=== PATIENT | female | born 1960 | race Caucasian/White ===

== ENCOUNTER → 2024-01-02 09:01 | Outpatient (REF) | payer BC, SELFPAY | LOC: RCS 09:01 | PROVIDERS: ATTENDING PHYSICIAN Physician Assistant Medical | DX: R42 Dizziness and giddiness (principal); R55 Syncope and collapse | CPT/HCPCS: 93225; 93226 ==

== ENCOUNTER → 2024-02-21 14:39 | Outpatient (REF) | payer BC, SELFPAY | LOC: HWWDC 14:39 | PROVIDERS: ATTENDING PHYSICIAN Obstetrics & Gynecology; FAMILY PHYSICIAN Internal Medicine | DX: Z12.31 Encounter for screening mammogram for malignant neoplasm of breast (principal) | CPT/HCPCS: 77063; 77067 ==

== ENCOUNTER → 2024-08-07 12:21 | Outpatient (REF) | payer BC, SELFPAY | LOC: RAD 12:21 | PROVIDERS: FAMILY PHYSICIAN Student in an Organized Health Care Education/Training Program | DX: R51.9 Headache, unspecified (principal) | CPT/HCPCS: 72052 ==

== ENCOUNTER → 2024-08-09 14:41 | Outpatient (REF) | payer BC, SELFPAY | LOC: HWRAD 14:41 | PROVIDERS: ATTENDING PHYSICIAN Student in an Organized Health Care Education/Training Program | DX: R51.9 Headache, unspecified (principal) | CPT/HCPCS: 70450 ==

== ENCOUNTER 2024-10-23 11:33 | Emergency (ER) | payer BC, SELFPAY ==
[2024-10-23 11:35] VITALS: BP 146/82
[2024-10-23 12:04] LABS: % Basophils 0.3 % (0-2); % Immature Granulocytes 0.3 % (0-0.5); % Monocytes 10.1 % (1.7-9.3); % Neutrophils 72.3 % (42.2-75.2); Absolute Eosinophils 0.1 10^3/uL (0-0.7); Absolute Lymphocytes 1.2 10^3/uL (1.2-3.4); Absolute Monocytes 0.7 10^3/uL (0.1-0.6); Absolute Neutrophils 5.3 10^3/uL (1.4-6.5); Hematocrit 38.4 % (37.0-47.0); Hemoglobin 12.9 g/dL (12.0-16.0); Mean Corp Hgb Conc. 33.6 g/dL (33.0-37.0); Mean Corpuscular Hgb 29.7 pg (27.0-31.0); Mean Corpuscular Volume 88.5 fL (81.0-99.0); Mean Platelet Volume 9.2 fL (7.4-10.4); Nucleated Red Blood Cells % 0 %; Platelet Count 391 10^3/uL (130-400); Red Blood Cell Count 4.34 10^6/uL (4.20-5.40); Red Cell Dist. Width 13.8 % (11.5-14.5); White Blood Cell Count 7.3 10^3/uL (4.8-10.8)
[2024-10-23 12:19] LABS: ALT (SGPT) 26 U/L (0-35); AST (SGOT) 25 U/L (14-36); Albumin 4.6 g/dl (3.5-5.0); Alkaline Phosphatase 84 U/L (38-126); Blood Urea Nitrogen 17 mg/dl (7-17); Calcium 9.3 mg/dl (8.4-10.2); Carbon Dioxide 29 mmol/L (22-30); Chloride 96 mmol/L (98-107); Glucose 100 mg/dl (70-99); Potassium 4.6 mmol/L (3.5-5.1); Sodium 133 mmol/L (135-145); Total Bilirubin 0.3 mg/dl (0.2-1.3); Total Protein 7.3 g/dl (6.3-8.2); eGFR > 60.00
--- NOTE | 2024-10-23 12:55 | ED.GENMED ---
History of Present Illness
General
Chief Complaint: Cold/Flu/URI Symptoms
Time Seen by Provider: 10/23/24 12:55
History of Present Illness
History of Present Illness:
TIME OF INITIAL ENCOUNTER: 12:55 PM
HPI: The patient was to have spine surgery at [facility] in November. She had outpatient labs due to weakness, myalgias, and a CRP was elevated. Sed rate was normal. However her primary care doctor was about the possibility of giant cell arteritis
and was referred here for further evaluation. She does have some vague head discomfort as well. She has no pain with chewing food. She tells me that her symptoms started after she fell/passed out earlier last year.
EXAM:
GENERAL: Well appearing in no distress
HEENT: Moist oral mucosa
CARDIOVASCULAR: No murmurs, normal heart rate, regular rhythm, No chest wall tenderness
PULMONARY: No respiratory distress, breath sounds are clear and equal
ABDOMEN: Soft with no peritoneal signs, no tenderness
NEUROLOGIC: Excellent strength all extremities, no coordination deficits, EOMI, normal gaze, no evidence for diplopia on exam
PSYCHIATRIC: Appropriate mental status, normal insight and judgement
EXTREMITIES: Nontender, no edema, moves all extremities equally
SKIN: No rash, no lesions
NUMBER AND COMPLEXITY OF PROBLEMS ADDRESSED AT THE ENCOUNTER
� Chronic conditions affecting care: Depression, spine surgeries
� Acute Exacerbation and/or Progression of Chronic Illness: This is an acute problem
� Differential Diagnosis includes: Viral syndrome, statin induced myopathy, GCA less likely, rhabdomyolysis
AMOUNT AND/OR COMPLEXITY OF DATA TO BE REVIEWED AND ANALYZED
� I performed an independent evaluation of and my interpretation is:
EKG:
CT:
X-rays:
Laboratory Studies: White count 7.3, hemoglobin normal, mild lymphocytopenia noted, chemistries relatively unremarkable, C-reactive protein is 48
Other:
� Review of other/old records: Holter monitor from January 2024 showed very rare PACs, no arrhythmias
� Clinical information was obtained by an independent historian: I spoke to the at bedside
� Prescriptions/Medications Considered but not given:
� Further testing considered but not performed:
RISK OF COMPLICATIONS AND/OR MORBIDITY OR MORTALITY OF PATIENT MANAGEMENT
� Social determinants of health affecting care: Son is a cryptographic center specialist; lives at home
� Discussion with other providers: I messaged rheumatology on-call to get their input
� Escalation of care including admission/observation vs risk of discharge considered: Sed rate is now higher than it was earlier. I spoke to rheumatology who recommended speaking to vascular, we have arranged for vascular
consultation tomorrow at [address] on empiric steroids for the possibly of giant cell arteritis. She is also to follow-up with rheumatology. CK does not show any signs of rhabdomyolysis.
ANY OTHER UPDATES:
Past History
Past History
ED Past Surgical History: Orthopedic
Social History
Tobacco: Non-smoker
Personal:
Living: with family
Phy Exam
Physical Exam
Physical Exam:
See HPI
Course
Orders/Labs/Results
Orders:
Orders
10/23/24 11:45
CRP [C-Reactive Protein] Urgent
Complete Blood Count/With Diff Urgent
Comprehensive Metabolic Panel Urgent
Creatine Phosphokinase Urgent
Comment: ADD ON
Erythrocyte Sed Rate Urgent
Comment: ADD ON
10/23/24 13:08
Add On- LAB Urgent
Tests Added?: ESR AND CK
0.9% Sodium Chloride 1000 ml [Nss] 1,000 ml IV BOLUS
Abnormal Lab Results
10/23/24
11:45
Absolute Monos (auto) 0.7 H 10^3/uL
(0.1-0.6)
Lymphocytes % 16.0 L %
(20.5-51.1)
Monocytes % 10.1 H %
(1.7-9.3)
ESR 36 H mm/hour
(0-20)
Sodium 133 L mmol/L
(135-145)
Chloride 96 L mmol/L
(98-107)
Glucose 100 H mg/dl
(70-99)
C-Reactive Protein 48.50 H mg/L
(0.0-10.00)
10/23/24 11:45
10/23/24 11:45
Vital Signs
Initial and Last Documented VS:
Initial Vital Signs
Temp Pulse Resp BP Pulse Ox
36.8 C 91 20 146/82 99
10/23/24 11:35 10/23/24 11:35 10/23/24 11:35 10/23/24 11:35 10/23/24 11:35
Last Documented Vital Signs
Temp Pulse Resp BP Pulse Ox
36.8 C 91 17 146/82 98
10/23/24 11:35 10/23/24 11:35 10/23/24 14:00 10/23/24 11:35 10/23/24 13:27
*Critical Care Note
Total Time (30-74mins, 75-104mins- exclusive of procedures): Not Applicable
ED Attending Note
-
Portions of this chart may have been created with voice recognition software.� Occasional wrong word or��sound alike� substitutions may have occurred due to the inherent limitations of voice recognition software.
Discharge Plan
Departure
Patient Disposition: Home (Routine Discharge)
Date of Disposition: 10/23/24
Time of Disposition: 14:23
Patient with high blood pressure during this ER visit?: Yes
Discharge Problem:
Acute viral syndrome
Prescriptions:
New
prednisone 10 mg tablet
60 mg PO DAILY Qty: 60 0RF
No Action
Tylenol Extra Strength Arthritis
2 tab PO PRN PRN (Reason: pain)
multivitamin 1 EACH tablet
1 ea PO DAILY
phytonadione (vitamin K1) 100 MCG tablet
100 mcg PO DAILY
cholecalciferol (vitamin D3) [Vitamin D3] 1,000 UNIT capsule
1,000 unit PO DAILY
Metamucil Fiber Singles 1 PACKET powder in packet
1 packet PO DAILY
Complete Vicco 1 EACH capsule
1 ea PO DAILY
Calcium Magnesium 1 EACH tablet
1 tab PO DAILY
amitriptyline 10 mg Tablet
20 mg PO DAILY
fluoxetine 20 mg Capsule
20 mg PO DAILY
Probiotic 3 billion cell Capsule
3,000 mmu cells PO DAILY
misoprostol 200 mcg Tablet
200 mcg
Patient Comments:
once
Referrals:
Steve Conway III, MD [Active] - Tomorrow (Follow-up with Dr. Conway's group tomorrow, October 24, at [address] Conway's nurse practitioner, Shirlene Myrick.)
Arnaldo Youssef MD [Consulting Staff] - Follow up in 5-7 days
Bo Treviño MD [Family Provider] -
Activity Restrictions/Additional Instructions:
Follow-up with Dr. Youssef. I also contacted the vascular surgeon, Dr. Conway and his nurse practitioner has made an appointment to see another nurse practitioner named Shirlene Myrick tomorrow at 2 PM at their office. Based on recommendations of the
prescription clerk lenses, Dr. Youssef, I have started you on steroids�sent prescription to the pharmacy.
Interventions
Interventions:
*Risk Screen - Suicide Last Done: 10/23/24 11:40
*General Assessment Last Done: 10/23/24 13:18
*Neglect/Abuse Screening Last Done: 10/23/24 13:19
ED- Fall Risk Assessment Last Done: 10/23/24 13:27
*ED COVID-19 Vaccine History Last Done: 10/23/24 13:18
ED- Pulmonary Assessment Last Done: 10/23/24 13:27
Discharge Date and Time
Print Language: ROMANSH
[2024-10-23] MEDS: NSS 1000 IV (13:15)
[2024-10-23 13:17] VITALS: BMI 21.7
[2024-10-23 13:27] LABS: Erythrocyte Sed Rate 36 mm/hour (0-20)
[2024-10-23 14:05] LABS: Creatine Phosphokinase 38 U/L (30-135)
[2024-10-23 15:06] VITALS: BP 125/71
== END 2024-10-23 15:08 | disposition home or self-care (01) ==
LOC: EMR 11:33
PROVIDERS: Emergency Medicine; EMERGENCY PHYSICIAN Emergency Medicine; FAMILY PHYSICIAN Student in an Organized Health Care Education/Training Program
DX: B34.9 Viral infection, unspecified (principal)
CPT/HCPCS: 99284; 96360; 80053; 82550; 85025; 85652; 86140

== ENCOUNTER 2024-10-30 08:01 | Day surgery (SDC) | payer BC, SELFPAY ==
[2024-10-30 08:21] VITALS: BMI 21.6
[2024-10-30] MEDS: BACTROBAN NASAL 1 GRAM NASAL (08:32)
[2024-10-30] MEDS: PERIDEX 0.12% ORAL RINSE 15 ML PO (08:38)
[2024-10-30 08:50] VITALS: BP 139/81
[2024-10-30] MEDS: NSS 500 IV (09:05)
--- NOTE | 2024-10-30 10:43 | W.SUR.PREOP ---
Pre-Operative Surgical Note
-
I have examined this patient prior to the performance of the scheduled procedure. Reviewed the office note from JAD Anderson and agree with findings
The patient's condition is unchanged from the time of the current History and Physical and the patient is able to undergo the scheduled procedure.
Technical aspects of the procedure were discussed with her and her in detail. The benefits and rationale for the temporal artery biopsy were discussed with her and her in detail. Operative risks were discussed with her and her
in detail including but not limited to bleeding, wound healing complications, pain and negative biopsy result. They both expressed a clear understanding of our conversation and agreed to proceed with surgery.
--- NOTE | 2024-10-30 10:48 | OR.RPT ---
Operative Report
Operative Report
Date of Operation: 10/30/2024
Pre Op Diagnosis: Suspected temporal arteritis
Post Op Diagnosis: Suspected temporal arteritis
Procedure: BILATERAL temporal artery biopsies
Surgeon: Steve Conway III, MD
Call Center Recruiter: Yonis Ugalde MD PGY1
Anesthesia: Sedation/local
Complications: None
Estimated Blood Loss: Minimal
History and Indications for Procedure: 64-year-old female with symptom constellation raising concern for temporal arteritis. We were asked to provide bilateral temporal artery biopsies.
Procedure in Detail: Jian Craven was correctly identified and placed supine on the operating table. After adequate induction of anesthesia the hair overlying the bilateral temporal regions was shaved. The temporal pulses were palpated
bilaterally and appropriate skin incisions were marked over the temporal pulses bilaterally. The bilateral temporal regions were then prepped and draped in the usual sterile fashion. The patient received preoperative antibiotics. A timeout
procedure was performed with the nursing and anesthesia staff confirming the patient's identity as well as the nature and laterality of the procedure.
Bilateral temporal artery biopsies were performed one at a time in the same manner as follows: Local anesthesia was infiltrated into the skin and subcutaneous tissue at the skin stef. A skin incision was made over the temporal skin stef.
Electrocautery and sharp dissection were used to expose the temporal artery. After adequate length of temporal artery had been exposed within the wound bed the proximal and distal ends were ligated with silk ties and small metal clips. The
intervening artery segment was transected proximally and distally and removed. The artery segment was identified according to laterality and passed off to the back table to be labeled and sent to pathology. The wound was then closely inspected for
hemostasis which was achieved. The wound was irrigated with saline solution.
Each wound was closed in layers. Skin glue was applied to each incision bilaterally.
The patient tolerated the procedure well and was taken to the recovery room in good condition.
Signed:
Steve Conway III, MD
[facility] Vascular Surgery
[phone] (hxii)
[2024-10-30 12:00] VITALS: BP 128/76; BP_SYST 16
[2024-10-30] MEDS: TYLENOL 650 MG PO (12:09)
[2024-10-30] MEDS: DEMEROL 12.5 MG IV (12:13)
[2024-10-30 12:41] VITALS: BP 113/70
[2024-10-30 12:56] VITALS: BP 110/71
[2024-10-30 13:11] VITALS: BP 103/67
[2024-10-30 13:26] VITALS: BP 122/73
== END 2024-10-30 13:55 | disposition home or self-care (01) ==
LOC: CATH 08:01
PROVIDERS: ATTENDING PHYSICIAN Surgery Vascular Surgery; FAMILY PHYSICIAN Student in an Organized Health Care Education/Training Program; OTHER PHYSICIAN Internal Medicine Cardiovascular Disease; OTHER PHYSICIAN Student in an Organized Health Care Education/Training Program
DX: R51.9 Headache, unspecified (principal); Z79.52 Long term (current) use of systemic steroids; Z79.899 Other long term (current) drug therapy; M50.30 Other cervical disc degeneration, unspecified cervical region; M51.369 Other intervertebral disc degeneration, lumbar region without mention of lumbar back pain or lower extremity pain; Z86.0100 Personal history of colon polyps, unspecified; Z88.1 Allergy status to other antibiotic agents; Z88.2 Allergy status to sulfonamides; Z88.0 Allergy status to penicillin
CPT/HCPCS: 37609; 88305; 88313

== ENCOUNTER → 2025-01-28 15:00 | Outpatient (REF) | payer BC, SELFPAY | LOC: HWRAD 15:00 | PROVIDERS: ATTENDING PHYSICIAN Student in an Organized Health Care Education/Training Program; FAMILY PHYSICIAN Student in an Organized Health Care Education/Training Program | DX: M81.0 Age-related osteoporosis without current pathological fracture (principal) | CPT/HCPCS: 77080 ==

== ENCOUNTER → 2025-03-26 09:13 | Outpatient (REF) | payer BC, SELFPAY | LOC: WDC 09:13 | PROVIDERS: ATTENDING PHYSICIAN Obstetrics & Gynecology; FAMILY PHYSICIAN Student in an Organized Health Care Education/Training Program | DX: R10.2 Pelvic and perineal pain (principal); R39.15 Urgency of urination; Z12.31 Encounter for screening mammogram for malignant neoplasm of breast | CPT/HCPCS: 76770; 76830; 76856; 77063; 77067 ==

== ENCOUNTER → 2025-06-19 07:59 | Outpatient (REF) | payer BC, SELFPAY | LOC: EMG 07:59 | PROVIDERS: ATTENDING PHYSICIAN Psychiatry & Neurology Neurology; FAMILY PHYSICIAN Student in an Organized Health Care Education/Training Program | DX: M79.603 Pain in arm, unspecified (principal); M79.606 Pain in leg, unspecified; R20.0 Anesthesia of skin | CPT/HCPCS: 95886; 95913 ==